=== PATIENT | male | born 1990 | race Caucasian/White ===

== ENCOUNTER 2016-09-22 18:13 | Emergency (ER) | payer MEDICAID, OTHER ==
[~2016-09-22] VITALS: Ht 175.3 cm; Wt 99.8 kg
[~2016-09-22 18:13] MED LIST: AMITRIPTYLINE; cymbalta
[2016-09-22 18:25] VITALS: BP_SYST 150
--- NOTE | 2016-09-22 18:33 | NUR ---
Patient to ER bed 2 to gown for evaluation. Side rails up. Report given to Janel DIAS.
--- NOTE | 2016-09-22 18:45 | NUR ---
Patient presents to the emergency department to be cleared for bed bugs, scabies, or anything else that may be contagious before he goes back to [facility]. Per patient, pt needs to be medically cleared before they can return to the counseling service. Patient has red bumps to sam arms, denies pain or itching, states it is "acne." will continue to monitor
--- NOTE | 2016-09-22 19:05 | NUR ---
Note eulalio in ED - 09/22/16 at 1906 by LYNDSAY Patient presents to the emergency department to be cleared for bed bugs, scabies, or anything else that may be contagious before he goes back to [facility]. Per patient, pt needs to be medically cleared before they can return to the counseling service. Patient has red bumps to sam arms, denies pain or itching, states it is "acne." will continue to monitor
--- NOTE | 2016-09-22 19:08 | NUR ---
MENDOZA JENKINS at bedside examining patient.
--- NOTE | 2016-09-22 19:24 | NUR ---
Patient given written and verbal discharge instructions and verbalizes understanding. ER CHECKING DEPARTMENT SUPERVISOR discussed with patient the results and treatment provided. Patient in stable condition. ID arm band removed. No Rx given. Patient educated on pain management and to follow up with PMD. Pain Scale 0/10. Opportunity for questions provided and answered.
[2016-09-22 19:26] VITALS: BP_SYST 138
== END 2016-09-22 19:24 | disposition home or self-care (01) ==
LOC: SED 18:13
DX: R22.33 Localized swelling, mass and lump, upper limb, bilateral (principal)
CPT/HCPCS: 99281